=== PATIENT | male | born 1955 | race Caucasian/White ===

== ENCOUNTER 2019-07-01 13:38 | Inpatient (IN) | payer MEDICARE, OTHER ==
[~2019-07-01] VITALS: Ht 167.7 cm; Wt 57.5 kg
[2019-07-01] VITALS (13 sets, daily range): BP systolic 121–164; BP diastolic 75–93
[2019-07-01] MEDS ORDERED: ASPIRIN 81 MG CHEW (CHILDREN'S ASA) ONE (13:55)
[2019-07-01] MEDS ORDERED: LIDOCAINE 1% INJ 20 ML 20 ML VIAL ONE (13:57)
[2019-07-01] MEDS ORDERED: MIDAZOLAM 5 MG/5 ML (VERSED) VIAL ONE (13:58)
[2019-07-01] MEDS ORDERED: HEParin 1000 UNIT/ML (10ML VIAL) FOR BOLUS ONE (13:58)
[2019-07-01] MEDS ORDERED: HEParin (CATH LAB) 1,000 ML IV ONE (13:58)
[2019-07-01] MEDS ORDERED: fentaNYL INJECTION 100 MCG/2 ML AMP ONE (13:58)
[2019-07-01] MEDS ORDERED: NITRO DRIP 25000 MCG/D5W 250 ML IV ONE (13:58)
[2019-07-01] MEDS ORDERED: ASPIRIN 81 MG CHEW (CHILDREN'S ASA) PO ONE (14:00)
--- NOTE | 2019-07-01 14:03 | NUR ---
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
[2019-07-01 14:05] LABS: BASOPHILS % (AUTO) 0 % (0-10); EOSINOPHILS # (AUTO) 0.5 10^3/uL (0.0-0.3); EOSINOPHILS % (AUTO) 8 % (0-10); HEMATOCRIT 49 % (40-54); HEMOGLOBIN 16.6 G/DL (13.3-17.7); LYMPHOCYTES % (AUTO) 17 % (12-44); MEAN CORPUSCULAR HEMOGLOBIN 31 PG (25-34); MEAN CORPUSCULAR HGB CONC 34 G/DL (32-36); MEAN CORPUSCULAR VOLUME 90 FL (80-99); MEAN PLATELET VOLUME 9.4 FL (7.4-10.4); MONOCYTES # (AUTO) 0.8 X 10^3 (0.0-1.0); MONOCYTES % (AUTO) 13 % (0-12); NEUTROPHILS # (AUTO) 3.6 X 10^3 (1.8-7.8); NEUTROPHILS % (AUTO) 61 % (42-75); PLATELET COUNT 274 10^3/uL (130-400); RED CELL DISTRIBUTION WIDTH 13.1 % (10.0-14.5); WHITE BLOOD COUNT 5.8 10^3/uL (4.3-11.0)
--- NOTE | 2019-07-01 14:06 | ED Chest Pain ---
General Chief Complaint: Chest Pain Stated Complaint: NSTEMI Source: patient Exam Limitations: no limitations History of Present Illness Date Seen by Provider: Jul 01, 2019 Time Seen by Provider: 13:47 Initial Comments Here with report of crushing chest pain over the last 2 days but states that he's had severe intermittent chest pain over the last week or 2. Does have cardiac history including heart catheter previously. He is unsure if he had heart stents placed at that time. He is currently not on any medications. He has not wanted to come to the hospital but significant other finally talked him into coming today. ST elevation noted on monitor. Timing/Duration: 1-2 days Severity/Quality: severe, pressure Location: central Radiation: no radiation Activities at Onset: none Prior CP/Workup: cardiac cath, heart attack Modifying Factors: improves with rest ASA po PHOTO STYLIST: No NTG SL PHOTO STYLIST: No Associated Symptoms: No back pain, No diaphoresis, No nausea/vomiting; shortness of breath Allergies and Home Medications Allergies Coded Allergies: codeine (Verified Allergy, Unknown, 07/01/19) Patient Home Medication List Home Medication List Reviewed: Yes Review of Systems Review of Systems Constitutional: see HPI EENTM: No Symptoms Reported Respiratory: Denies Cough; Shortness of Air Cardiovascular: Chest Pain; Denies Edema Gastrointestinal: No Symptoms Reported Genitourinary: No Symptoms Reported Musculoskeletal: no symptoms reported All Other Systems Reviewed Negative Unless Noted: Yes Past Ozdzhkx-Yqfffo-Mrmjzf Hx Past Med/Social Hx: Reviewed Nursing Past Med/Soc Hx Patient Social History Alcohol Use: Denies Use Recreational Drug Use: Yes (marijuana) Smoking Status: Current Everyday Smoker Past Medical History Surgeries: Yes Orthopedic Respiratory: No Cardiac: Yes Coronary Artery Disease, Hypertension Neurological: No Musculoskeletal: Yes Degenerate Disk Disease Family Medical History Reviewed Nursing Family Hx No Pertinent Family Hx Physical Exam Vital Signs Vital Signs - First Documented 07/01/19 13:46 Temp 35.5 Pulse 84 Resp 20 B/P (MAP) 134/104 (114) Pulse Ox 99 O2 Delivery Room Air Capillary Refill : Height, Weight, BMI Height: '" Weight: lbs. oz. kg; BMI Method: General Appearance: WD/WN, Mild Distress HEENT: PERRL/EOMI, Pharynx Normal Neck: Non Tender, Supple Respiratory: Lungs Clear, Normal Breath Sounds Cardiovascular: Regular Rate, Rhythm, No Murmur Gastrointestinal: Non Tender, Soft Extremity: Normal Range of Motion, Non Tender Neurologic/Psychiatric: Alert, Oriented x3 Skin: Normal Color, Warm/Dry Progress/Results/Core Measures Results/Orders Lab Results Laboratory Tests Test 07/01/19 13:55 Range/Units White Blood Count 5.8 4.3-11.0 10^3/uL Red Blood Count 5.40 4.35-5.85 10^6/uL Hemoglobin 16.6 13.3-17.7 G/DL Hematocrit 49 40-54 % Mean Corpuscular Volume 90 80-99 FL Mean Corpuscular Hemoglobin 31 25-34 PG Mean Corpuscular Hemoglobin Concent 34 32-36 G/DL Red Cell Distribution Width 13.1 10.0-14.5 % Platelet Count 274 130-400 10^3/uL Mean Platelet Volume 9.4 7.4-10.4 FL Neutrophils (%) (Auto) 61 42-75 % Lymphocytes (%) (Auto) 17 12-44 % Monocytes (%) (Auto) 13 H 0-12 % Eosinophils (%) (Auto) 8 0-10 % Basophils (%) (Auto) 0 0-10 % Neutrophils # (Auto) 3.6 1.8-7.8 X 10^3 Lymphocytes # (Auto) 1.0 1.0-4.0 X 10^3 Monocytes # (Auto) 0.8 0.0-1.0 X 10^3 Eosinophils # (Auto) 0.5 H 0.0-0.3 10^3/uL Basophils # (Auto) 0.0 0.0-0.1 10^3/uL My Orders Orders - EDIE LEUNG MD Cbc With Automated Diff (07/01/19 13:54) Magnesium (07/01/19 13:54) Chest 1 View, Ap/Pa Only (07/01/19 13:54) Ekg Tracing (07/01/19 13:54) Cardiac Profile 1 (07/01/19 13:54) Comprehensive Metabolic Panel (07/01/19 13:54) Myoglobin Serum (07/01/19 13:54) Protime With Inr (07/01/19 13:54) Partial Thromboplastin Time (07/01/19 13:54) O2 (07/01/19 13:54) Monitor-Rhythm Ecg Trace Only (07/01/19 13:54) Lipid Panel (07/02/19 06:00) Ed Iv/Invasive Line Start (07/01/19 13:54) Aspirin Chewable Tablet (Baby Aspirin Ch (07/01/19 14:00) Vital Signs/I&O 07/01/19 13:46 Temp 35.5 Pulse 84 Resp 20 B/P (MAP) 134/104 (114) Pulse Ox 99 O2 Delivery Room Air Progress Progress Note : Progress Note Seen and evaluated. IV, labs, EKG and chest x-ray ordered. Initial EKG concerning for STEMI and discussed with Dr. Dubois at 1352. He has activated the [facility] Lab [facility]st team. ASA 324 mg by mouth given. IV established. Labs sent but no x-ray as he went to [facility]st at 1405. Patient is a STEMI activation. Initial ECG Impression Date: Jul 01, 2019 Initial ECG Impression Time: 13:49 Initial ECG Rate: 83 Initial ECG Impression: Acute MA Comment ST elevation noted in V1 through the P3 with ST depression in leads 2, 3 and aVF concerning for anterior infarct. Left ventricular hypertrophy noted. Normal axis. ACUTE MA. Discussed with Dr. Dubois who agrees. Departure Communication (Admissions) Time/Spoke to Admitting Phy: 13:52 Impression Primary Impression: Acute anterior wall MA Disposition: 09 ADMITTED INPATIENT Condition: Critical Admissions Decision to Admit Reason: Admit from ER (General) Decision to Admit/Date: Jul 01, 2019 Time/Decision to Admit Time: 13:52 EDIE LEUNG MD Jul 01, 2019 14:06 POS
[2019-07-01] MEDS ORDERED: NS IV 1000 ML 1,000 ML ONE (14:09)
[2019-07-01 14:19] LABS: INR 0.9 (0.8-1.4); PROTHROMBIN TIME PATIENT 12.7 SEC (12.2-14.7)
[2019-07-01] MEDS ORDERED: NS IV 1000 ML 1,000 ML IV SCH (14:30)
[2019-07-01 14:32] LABS: ALANINE AMINOTRANSFERASE 23 U/L (0-55); ALBUMIN 4.1 GM/DL (3.2-4.5); ALKALINE PHOSPHATASE 82 U/L (40-136); BILIRUBIN,TOTAL 0.3 MG/DL (0.1-1.0); BUN/CREATININE RATIO 10; CALCIUM 9.3 MG/DL (8.5-10.1); CARBON DIOXIDE 23 MMOL/L (21-32); CHLORIDE 104 MMOL/L (98-107); CREATININE SERUM 0.78 MG/DL (0.60-1.30); GFR ESTIMATED > 60; GLUCOSE 103 MG/DL (70-105); MAGNESIUM 1.8 MG/DL (1.6-2.4); POTASSIUM 3.8 MMOL/L (3.6-5.0); SODIUM 139 MMOL/L (135-145); TOTAL PROTEIN 7.5 GM/DL (6.4-8.2)
[2019-07-01] MEDS ORDERED: TICAGRELOR 90 MG TABLET (BRILINTA) PO ONE (14:41)
[2019-07-01] MEDS ORDERED: PATIENT MAY USE OWN MEDS, ALL PO SCH (15:00)
[2019-07-01] MEDS: PANTOPRAZOLE 40 MG (PROTONIX) TAB PO SCH (16:29)
[2019-07-01] MEDS: NS IV 1000 ML 1,000 ML IV SCH (16:30)
[2019-07-01] MEDS: OMEGA 3 (FISH OIL) 1000 MG CAP PO SCH (16:30)
--- NOTE | 2019-07-01 16:31 | Cardiac Procedure Note-CS/ASA ---
Pre-Procedure Note Pre-Op Procedure Note H&P Reviewed The H&P was reviewed, patient examined and no changes noted. Date H&P Reviewed: Jul 01, 2019 Time H&P Reviewed: 14:00 Conscious Sedation Pre-Proced Time 14:00 ASA Score 3 For ASA 3 and 4: Consider anesthesia and medical clearance. Also, for patients with a history of failed moderate sedation consider anesthesia. Airway Lungs Heart ASA score ASA 1: a normal healthy patient ASA 2: a patient with a mild systemic disease (mid diabetes, controlled hypertension, obesity x ASA 3: a patient with a severe systemic disease that limits activity (angina, COPD, prior Myocardial infarction) ASA 4: a patient with an incapacitating disease that is a constant threat to life (CHF, renal failure) ASA 5: a moribund patient not expected to survive 24 hrs. (ruptured aneurysm) ASA 6: a declared brain- patient whose organs are being harvested. For emergent operations, add the letter E after the classification Mallampati Classification Grade 3 Sedation Plan Analgesia, Amnesia, Plan communicated to team members, Discussed options with patient/fam, Discussed risks with patient/fam The patient is an appropriate candidate to undergo the planned procedure, sedation, and anesthesia. The patient immediately re-assessed prior to indication. LORI SANCHEZ MD Jul 01, 2019 16:31 POS
--- NOTE | 2019-07-01 16:36 | Cardiology History & Physical ---
HPI-Cardiology Cardiology Consultation Date of Consultation 07/01/19 Date of Admission Time Seen by Provider: 13:40 Indication: acute myocardial infarction HPI 64 years old gentleman with history of coronary artery disease, reporting having myocardial infarctions in the remote past, no recent cardiology workup, has been having chest pain waxing and waning for the past week, this morning started to have more severe chest pain described as dull in nature in the retrosternal area radiating to the back with shortness of breath came into the emergency room and noted to have ST elevation in the anterior leads. PMH-Cardiology Immunizations Up To Date Tetanus Booster (DTap): Unknown Surgeries Yes Respiratory No Cardiovascular Yes Neurological No Musculoskeletal Yes Degenerate Disk Disease Other PMHx Discussed below Social History Patient Social History Marrital Status: Employed/Student: employed Alcohol Use: Denies Use Recreational Drug Use: Yes (marijuana) Smoking: Current every day smoker Recent Foreign Travel: No Contact w/other who traveled: No Recent Infectious Disease Expo: No Family Hx Significant Family History: No Pertinent Family Hx Other Family history of coronary artery disease ROS-Cardiology Review of Systems General: No Chills, No Night Sweats; Fatigue; No Malaise, No Appetite HEENT: No Head Aches, No Visual Changes, No Eye Pain, No Ear Pain, No Dysphasia, No Sinus Congestion, No Post Nasal Drip, No Sore Throat Pulmonary: Dyspnea, Cough; No Pleuritic Chest Pain Cardiovascular: Chest Pain; No: Palpitations, Orthopnea, Paroxysmal Noc. Dyspnea, Edema, Lt Headedness Gastrointestinal: No: Nausea, Vomiting, Abdominal Pain, Diarrhea, Constipation, Melena, Hematochezia Genitourinary: No Dysuria, No Frequency, No Incontinence, No Hematuria, No Retention Musculoskeletal: No: neck pain, shoulder pain, arm pain, back pain, hand pain, leg pain, foot pain Neurological: No: Weakness, Numbness, Incoordination, Change in speech, Confusion, Seizures Home Medications & Allergies Allergies: Coded Allergies: codeine (Verified Allergy, Unknown, 07/01/19) Home Medication List Reviewed: Yes Exam-Cardiology Vital Signs Vital Signs Date Time Temp Pulse Resp B/P (MAP) Pulse Ox O2 Delivery O2 Flow Rate FiO2 07/01/19 16:15 61 6 126/82 (97) 100 Room Air 07/01/19 13:46 35.5 Exam General Appearance: Alert, Oriented X3, Cooperative, No Acute Distress HEENT: Atraumatic, PERRLA Respiratory: Clear to Auscultation, Normal Air Movement Cardiovascular: Regular Rate, Normal S1, Normal S2, No Murmurs Abdominal: Normal Bowel Sounds, Soft, No Tenderness, No Hepatosplenomegaly, No Masses Extremities: No Clubbing, No Cyanosis, No Edema, Normal Pulses, No Tendern ess/Swelling Skin: No Rashes, No Breakdown, No Significant Lesion Neuro: Normal Gait, Normal Speech, Strength at 5/5 X4 Ext, Normal Tone, Sensation Intact Psych/Mental Status: Mental Status NL, Mood NL Results Labs Labs Laboratory Tests 07/01/19 13:55: White Blood Count 5.8, Red Blood Count 5.40, Hemoglobin 16.6, Hematocrit 49, Mean Corpuscular Volume 90, Mean Corpuscular Hemoglobin 31, Mean Corpuscular Hemoglobin Concent 34, Red Cell Distribution Width 13.1, Platelet Count 274, Mean Platelet Volume 9.4, Neutrophils (%) (Auto) 61, Lymphocytes (%) (Auto) 17, Monocytes (%) (Auto) 13H, Eosinophils (%) (Auto) 8, Basophils (%) (Auto) 0, Neutrophils # (Auto) 3.6, Lymphocytes # (Auto) 1.0, Monocytes # (Auto) 0.8, Eosinophils # (Auto) 0.5H, Basophils # (Auto) 0.0, Prothrombin Time 12.7, INR Comment 0.9, Activated Partial Thromboplast Time 29, Sodium Level 139, Potassium Level 3.8, Chloride Level 104, Carbon Dioxide Level 23, Anion Gap 12, Blood Urea Nitrogen 8, Creatinine 0.78, Estimat Glomerular Filtration Rate > 60, BUN/Creatinine Ratio 10, Glucose Level 103, Calcium Level 9.3, Corrected Calcium 9.2, Magnesium Level 1.8, Total Bilirubin 0.3, Aspartate Amino Transf (AST/SGOT) 23, Alanine Aminotransferase (ALT/SGPT) 23, Alkaline Phosphatase 82, Myoglobin 54.4, Troponin I < 0.028, Total Protein 7.5, Albumin 4.1 A/P-Cardiology Admission Diagnosis Acute myocardial infarction Coronary artery disease Hypertension Hyperlipidemia Admission Status: Inpatient Order (span 2 midnights) Reason for Inpatient Admission: Acute ST elevation myocardial infarction Assessment/Plan Acute ST elevation myocardial infarction, will proceed with emergency cardiac catheterization possible PTCA Coronary artery disease, patient had cardiac catheterization showed severe disease at the mid LAD, underwent stenting to the mid LAD with excellent results, had 50% stenosis at the ostial left main which would be monitored closely Hypertension, started on beta blockers and monitor closely next Hyperlipidemia started on Lipitor 80 mg daily Tobaccoism educated on smoking cessation Clinical Quality Measures AMI/AHF: ASA po Prior to arrival: LORI Mueller MD Jul 01, 2019 4:36 pm POS
--- NOTE | 2019-07-01 16:42 | Cardiac Cath Report ---
Cardiac Cath Report Physician (s)/Wood Die Maker (s) Physician LORI SANCHEZ MD Pre-Procedure Diagnosis Pre-Procedure Diagnosis: acute ST elevation myocardial infarction Post-Procedure Note Procedure Start Date: Jul 01, 2019 Name of Procedure: Left heart catheterization Left ventriculogram Stenting to the LAD Findings/Procedure Note PROCEDURE NOTE: 64 years old gentleman with history of coronary artery disease admitted with acute ST elevation myocardial infarction, proceeded with emergency cardiac catheterization possible PTCA. After explaining the procedure to the patient, all pros and cons were explained, all questions were answered. The patient signed the consent and then he was placed on the cardiac catheterization laboratory. Groin was prepped SL fashion local anesthesia was used. Sheath placed in the right femoral artery, Akua right and left catheter were used to access the coronary system and angiogram was done. Patient was given 5000 units of heparin, FL guide was advanced to the left main, patient had an ostial left main coronary artery stenosis, dampening of the pre ssure immediately with EKG changes once the guide is intubating the left main. I was able to advance the wire carefully then proceeded with balloon angioplasty for severe mid LAD stenosis using 2 x 20 mm balloon door to balloon time was 50 minutes, then I proceeded with deployment of Verónica 2.25 x 23 mm stent expanded to 2.5 mm under 15 keara with excellent results, the distal LAD at the apical portion is very small artery. At the end of the procedure the sheath was removed. Closure device was used FINDINGS: Hemodynamics LV 127/37, end-diastolic pressure of 37 Aorta 125/68 mean of 64 ANATOMY: Left Main has 50 percent ostial left main, fairly small artery almost totally occluded with the guide Left Anterior Descending is small artery with severe mid LAD stenosis involving the ostium of the diagonal artery, distally the LAD becomes very small artery with severe disease at the apical portion, successful balloon angioplasty then deployment of Verónica 2.25 x 23 mm expanded to 2.5 mm with excellent results in the mid LAD door to balloon time was 50 minutes Left Circumflex is small in size with mild disease nonobstructive disease Right Coronory Artery is dominant artery small in size with 40-50 percent proximal stenosis nonobstructive disease LV Gram is normal in size with mild hypokinesia at the anterior wall S3 ejection fraction 50 percent CONCLUSION: 1. Acute ST elevation myocardial infarction with door to balloon time 50 minutes 2. Severe stenosis at the mid LAD successful balloon angioplasty then stenting using Verónica 2.2523 mm expanded to 2.5 mm with excellent results involving the ostium of the diagonal artery 3. The LAD tapered down into a very small artery with severe disease at the apex area, not amendable to intervention 4. 50 percent ostial left main coronary artery stenosis, continue to monitor closely 5. Small coronary system with 40-50 percent stenosis in the proximal right c oronary artery that is dominant artery, mild disease in the circumflex artery 6. Normal left ventricular size with mild hypokinesia at the anterior wall estimated ejection fraction 50 percent DISCUSSION AND RECOMMENDATION: Patient was started on aspirin and Brilinta in addition to Lipitor 80 mg daily and Lopressor 12.5 mg twice daily, will continue monitor tolerance and response Anesthesia Type: Conscious Sedation Estimated blood loss (mL): 25 ml Contrast Amount: 147 ml Total Radiation Dose: 607 mGy Post-Procedure Diagnosis Post-operative diagnosis: Acute ST elevation myocardial infarction Coronary artery disease Hypertension Hyperlipidemia LORI SANCHEZ MD Jul 01, 2019 4:42 pm POS
[2019-07-01] MEDS ORDERED: FLU QUADRIvalent (5+ YOA) 2019-2020 (AFLURIA) 0.5 ML IM ONE (17:15)
[2019-07-01] MEDS: TICAGRELOR 90 MG TABLET (BRILINTA) PO SCH (20:10)
[2019-07-01] MEDS: meTOprolol TARTRATE 25 MG (LOPRESSOR) TABLET PO SCH (20:10)
[2019-07-02] VITALS (11 sets, daily range): BP systolic 113–142; BP diastolic 70–83
[2019-07-02] MEDS: NS IV 1000 ML 1,000 ML IV SCH (00:55)
[2019-07-02 03:25] LABS: HEMOGLOBIN 14.6 G/DL (13.3-17.7); MEAN PLATELET VOLUME 9.9 FL (7.4-10.4); RED CELL DISTRIBUTION WIDTH 12.9 % (10.0-14.5); WHITE BLOOD COUNT 8.5 10^3/uL (4.3-11.0)
[2019-07-02 03:44] LABS: BUN/CREATININE RATIO 10; CALCIUM 8.5 MG/DL (8.5-10.1); CARBON DIOXIDE 22 MMOL/L (21-32); CHLORIDE 108 MMOL/L (98-107); CHOLESTEROL 138 MG/DL (< 200); CREATININE SERUM 0.78 MG/DL (0.60-1.30); GFR ESTIMATED > 60; GLUCOSE 99 MG/DL (70-105); HDL CHOLESTEROL 34 MG/DL (40-60); POTASSIUM 4.1 MMOL/L (3.6-5.0); SODIUM 139 MMOL/L (135-145); TRIGLYCERIDES 81 MG/DL (<150); VLDL CHOLESTEROL 16 MG/DL (5-40)
[2019-07-02] MEDS ORDERED: MAGNESIUM 1 GM/100 ML IVPB 200 ML IV ONE (05:06)
[2019-07-02] MEDS: MAGNESIUM 1 GM/100 ML IVPB 100 ML IV SCH ×2 (05:16→06:31)
[2019-07-02] MEDS ORDERED: POTASSIUM CL 10MEQ/50ML IVPB 50 ML IV SCH (06:00)
[2019-07-02] MEDS ORDERED: KCL 20 MEQ TAB (K-DUR) PO SCH (06:00)
[2019-07-02] MEDS ORDERED: MAGNESIUM 1 GM/100 ML IVPB 100 ML IV SCH (06:00)
[2019-07-02] MEDS: PANTOPRAZOLE 40 MG (PROTONIX) TAB PO SCH (06:30)
[2019-07-02] MEDS: OMEGA 3 (FISH OIL) 1000 MG CAP PO SCH (06:30)
--- NOTE | 2019-07-02 06:47 | Cardiology Discharge Summary ---
Discharge Summary Hospital Course Problems Reviewed?: Yes Hospital Course Date of Admission: Jul 01, 2019 at 15:04 Admission Diagnosis : Family Physician/Provider: No,Local Physician Date of Discharge: 07/02/19 Discharge Diagnosis: [ Acute myocardial infarction Coronary artery disease Hypertension Hyperlipidemia] Hospital Course: Status post acute chest pain with ST elevation and anterior leads, cardiac catheterization showed severe disease in the mid LAD, successful intervention with excellent results. The distal LAD is tapering down into a very small artery. There is an ostial left main disease. Troponin showed slight elevation. Coronary artery disease, patient had cardiac catheterization showed severe disease at the mid LAD, underwent stenting to the mid LAD with excellent results, had 50% stenosis at the ostial left main which would be monitored closely, catheter report: 1. Acute ST elevation myocardial infarction with door to balloon time 50 minutes 2. Severe stenosis at the mid LAD successful balloon angioplasty then stenting using Verónica 2.2523 mm expanded to 2.5 mm with excellent results involving the ostium of the diagonal artery 3. The LAD tapered down into a very small artery with severe disease at the apex area, not amendable to intervention 4. 50 percent ostial left main coronary artery stenosis, continue to monitor closely 5. Small coronary system with 40-50 percent stenosis in the proximal right coronary artery that is dominant artery, mild disease in the circumflex artery 6. Normal left ventricular size with mild hypokinesia at the anterior wall estimated ejection fraction 50 percent Hypertension, started on metoprolol Hyperlipidemia started on Lipitor 80 mg daily Tobaccoism educated on smoking cessation Patient was educated on compliance with medications.] Labs and Pending Lab Test: Laboratory Tests 07/01/19 13:55: White Blood Count 5.8, Red Blood Count 5.40, Hemoglobin 16.6, Hematocrit 49, Mean Corpuscular Volume 90, Mean Corpuscular Hemoglobin 31, Mean Corpuscular Hemoglobin Concent 34, Red Cell Distribution Width 13.1, Platelet Count 274, Mean Platelet Volume 9.4, Neutrophils (%) (Auto) 61, Lymphocytes (%) (Auto) 17, Monocytes (%) (Auto) 13H, Eosinophils (%) (Auto) 8, Basophils (%) (Auto) 0, Neutrophils # (Auto) 3.6, Lymphocytes # (Auto) 1.0, Monocytes # (Auto) 0.8, Eosinophils # (Auto) 0.5H, Basophils # (Auto) 0.0, Prothrombin Time 12.7, INR Comment 0.9, Activated Partial Thromboplast Time 29, Sodium Level 139, Potassium Level 3.8, Chloride Level 104, Carbon Dioxide Level 23, Anion Gap 12, Blood Urea Nitrogen 8, Creatinine 0.78, Estimat Glomerular Filtration Rate > 60, BUN/Creatinine Ratio 10, Glucose Level 103, Calcium Level 9.3, Corrected Calcium 9.2, Magnesium Level 1.8, Total Bilirubin 0.3, Aspartate Amino Transf (AST/SGOT) 23, Alanine Aminotransferase (ALT/SGPT) 23, Alkaline Phosphatase 82, Myoglobin 54.4, Troponin I < 0.028, Total Protein 7.5, Albumin 4.1 07/01/19 22:00: Troponin I 0.053H 07/02/19 03:05: White Blood Count 8.5, Red Blood Count 4.71, Hemoglobin 14.6, Hematocrit 43, Mean Corpuscular Volume 91, Mean Corpuscular Hemoglobin 31, Mean Corpuscular Hemoglobin Concent 34, Red Cell Distribution Width 12.9, Platelet Count 225, Mean Platelet Volume 9.9, Sodium Level 139, Potassium Level 4.1, Chloride Level 108H, Carbon Dioxide Level 22, Anion Gap 9, Blood Urea Nitrogen 8, Creatinine 0.78, Estimat Glomerular Filtration Rate > 60, BUN/Creatinine Ratio 10, Glucose Level 99, Calcium Level 8.5, Magnesium Level 1.6, Troponin I 0.087H, Triglycerides Level 81, Cholesterol Level 138, LDL Cholesterol Direct 89, VLDL Cholesterol 16, HDL Cholesterol 34L Assessment/Pt DC Instructions Patient will be discharged home, educated in length about compliance with medications. He denied any chest pain. Groin is healing well Discharge Diet: Low Sodium Diet Orders-Post D/C & Referrals Pneu Vac Indicated: Yes Discharge Physical Examination Allergies: Coded Allergies: codeine (Verified Allergy, Unknown, 07/01/19) General Appearance: No Apparent Distress, WD/WN HEENT: PERRL/EOMI, TMs Normal, Normal ENT Inspection, Pharynx Normal Respiratory: Chest Non Tender, Lungs Clear, Normal Breath Sounds, No Accessory Muscle Use, No Respiratory Distress Cardiovascular: Regular Rate, Rhythm, No Edema, No Gallop, No JVD, No Murmur, Normal Peripheral Pulses Gastrointestinal: Normal Bowel Sounds, No Organomegaly, No Pulsatile Mass Extremity: Normal Capillary Refill, Normal Inspection Skin: Normal Color, Warm/Dry Neurologic/Psychiatric: Alert, Oriented x3, No Motor/Sensory Deficits, Normal Mood/Affect Clinical Quality Measures Admission Status Admission Status: Inpatient Order (span 2 midnights) Reason for Inpatient Admission: Acute myocardial infarction AMI/AHF: ASA po Prior to arrival: No DVT/VTE Risk/Contraindication: Risk Factor Score Per Nursin RFS Level Per Nursing on Admit: 4+=Very High LORI SANCHEZ MD Jul 02, 2019 06:46 POS
[2019-07-02] MEDS ORDERED: PANT40TA3 PO (06:50)
[2019-07-02] MEDS ORDERED: TICA90TA PO (06:50)
[2019-07-02] MEDS ORDERED: ATOR20TA49 PO (06:50)
[2019-07-02] MEDS ORDERED: METO-333 PO (06:50)
[2019-07-02] MEDS ORDERED: OMG1KC PO (06:50)
[2019-07-02] MEDS ORDERED: ASPI-983 PO (06:50)
--- NOTE | 2019-07-02 06:50 | Discharge Inst-Post CATH ---
Discharge Inst-CATH/EP Problems Reviewed?: Yes Post Cardiac Cath/EP D/C Inst Follow Up/Plan Appointment with Dr. SANCHEZ's office in 2 weeks <b>CARDIAC CATH/EP PROCEDURE DISCHARGE INSTRUCTIONS</b> ACTIVITY * Go Home directly and rest. * Limit activity of the leg (or wrist if it was used) for 7 days including aerobics, swimming, jogging, bicycling, etc. * Restrict stair-climbing for 7 days if possible, if not, climb up with your non-cath leg, then bring together on the same step. * Avoid lifting, pushing, pulling or excessive movement of the affected e xtremity for 7 days. * Customary sexual activity may be resumed after 2 days-use caution not to use a position that strains or causes pain to the affected extremity. * No driving for 24 hours. * NO SMOKING. * Avoid straining for bowel movements for 7 days. * Gentle walking on level ground is allowed. * Returning to work will depend on the type of procedure and the results. Your doctor will discuss this with you. CALL YOUR DOCTOR FOR ANY OF THE FOLLOWING: *If bleeding from the puncture site occurs- Apply gentle pressure to site with clean cloth and call your doctor or EMS. * If a knot or lump forms under the skin, increases in size, or causes pain. * If bruising appears to be worsening or moving further down your leg instead of disappearing. * Temperature above 101 F. CARE OF YOUR GROIN INCISION; * Bruising or purple discoloration of the skin near the puncture site is common. * You may shower only, no bathtub bathing for 5 days. Be careful to avoid slipping as your leg may feel stiff. * If a closure device was used on your femoral artery, please see the attached guide regarding care of the device and your leg. * Leave dressing on FOR 24 hours. CARE OF YOUR WRIST INCISION; * Bruising or purple discoloration of the skin near the puncture site is common. * You may shower. * DO NOT submerge wrist. * Leave dressing on FOR 24 hours. LORI SANCHEZ MD Jul 02, 2019 06:50 POS
[2019-07-02] MEDS: TICAGRELOR 90 MG TABLET (BRILINTA) PO SCH (08:41)
[2019-07-02] MEDS: meTOprolol TARTRATE 25 MG (LOPRESSOR) TABLET PO SCH (08:42)
[2019-07-02] MEDS ORDERED: ASPIRIN E.C. 81 MG (ECOTRIN) TAB PO SCH (09:00)
--- NOTE | 2019-07-02 11:40 | NUR ---
Discharge instructions given. Patients is here, she is his ride home. Patient leaving ICU floor at 1140, this nurse walked patient out and discharged via private vehicle.
== END 2019-07-02 11:40 | disposition home or self-care (01) | DRG 247 ==
LOC: EDUNIT# 13:38 → ER 13:40 → CATH 13:57 → ICU 15:04
PROVIDERS: ADMIT Internal Medicine Cardiovascular Disease; ATTEND Internal Medicine Cardiovascular Disease
PROC: 027034Z Dilation of Coronary Artery, One Artery with Drug-eluting Intraluminal Device, Percutaneous Approach (ICD-10-PCS; principal; 2019-07-01)
PROC: 4A023N7 Measurement of Cardiac Sampling and Pressure, Left Heart, Percutaneous Approach (ICD-10-PCS; 2019-07-01)
PROC: B2111ZZ Fluoroscopy of Multiple Coronary Arteries using Low Osmolar Contrast (ICD-10-PCS; 2019-07-01)
PROC: B2151ZZ Fluoroscopy of Left Heart using Low Osmolar Contrast (ICD-10-PCS; 2019-07-01)
DX: I21.09 ST elevation (STEMI) myocardial infarction involving other coronary artery of anterior wall (principal); I25.10 Atherosclerotic heart disease of native coronary artery without angina pectoris; I10 Essential (primary) hypertension; E78.5 Hyperlipidemia, unspecified; F17.290 Nicotine dependence, other tobacco product, uncomplicated; Z82.49 Family history of ischemic heart disease and other diseases of the circulatory system; I25.2 Old myocardial infarction; Z88.5 Allergy status to narcotic agent; Z23 Encounter for immunization
CPT/HCPCS: 36415; 80048; 80053; 80061; 83735; 83874; 84484; 85025; 85027; 85610; 85730; 93005; 93041; 93458